=== PATIENT | female | born 1985 | race Asian ===

== ENCOUNTER 2017-12-15 14:02 | Inpatient (IN) | payer SELFPAY ==
[~2017-12-15] VITALS: Ht 172.7 cm; Wt 82.6 kg
[2017-12-17] MEDS ORDERED: LACTATED RINGERS 1,000 ML IV SCH (01:08)
[2017-12-17 01:30] VITALS: BP 115/71
[2017-12-17 01:57] LABS: BASOPHILS # (AUTO) 0.3 K/uL (0.00-0.22); EOSINOPHILS % (AUTO) 0.5 % (0.0-4.0); HEMATOCRIT 38.1 % (36-48); HEMOGLOBIN 12.8 g/dL (12.0-16.0); LYMPHOCYTES % (AUTO) 22.1 % (20.5-51.1); MEAN CORPUSCULAR HEMOGLOBIN 31 pg (27-31); MEAN CORPUSCULAR HGB CONC 34 g/dL (33-37); MEAN CORPUSCULAR VOLUME 92 fL (80-94); MONOCYTES # (AUTO) 0.8 K/uL (0.8-1.0); MONOCYTES % (AUTO) 8.9 % (1.7-9.3); NEUTROPHILS # (AUTO) 5.9 K/uL (1.8-7.7); NEUTROPHILS % (AUTO) 65.5 % (42.2-75.2); PLATELET COUNT (AUTO) 169 K/uL (140-450); RED BLOOD CELL COUNT(AUTO) 4.15 MIL/uL (4.20-5.40); RED CELL DISTRIBUTION WIDTH 12.7 % (11.6-13.7)
[2017-12-17 01:58] LABS: APPEARANCE,URINE SL CLOUDY (CLEAR); BILIRUBIN,URINE NEGATIVE (NEGATIVE); BLOOD, URINE NEGATIVE (NEGATIVE); COLOR,URINE YELLOW (YELLOW); LEUKOCYTE ESTERASE ,URINE 2+ (NEGATIVE); NITRITE, URINE NEGATIVE (NEGATIVE); PH,URINE 5.5 (5.0-9.0); UGLUCOSE NEGATIVE (NEGATIVE)
[2017-12-17] MEDS ORDERED: AMPICILLIN 2,000 MG in NACL 0.9% MINI-BAG PLUS 100 ML IV SCH (02:00)
[2017-12-17 02:34] LABS: RBC,URINE 0-5 (RARE) /HPF (0-5); WBC,URINE TOO MANY TO COUNT /HPF (0-5)
[2017-12-17] MEDS ORDERED: AMPICILLIN 2,000 MG VIAL ONE (02:40)
[2017-12-17] MEDS ORDERED: MISOPROSTOL 25 MCG TAB ONE ×4 (03:23→13:09)
[2017-12-17] MEDS: MISOPROSTOL 25 MCG TAB VG PRN ×2 (03:30→13:05)
[2017-12-17] MEDS ORDERED: AMPICILLIN 1,000 MG VIAL ONE ×5 (06:54→23:38)
[2017-12-17] MEDS: AMPICILLIN 1,000 MG in NACL 0.9% MINI-BAG PLUS 50 ML IV SCH ×5 (06:58→23:42)
--- NOTE | 2017-12-17 09:08 | NUR ---
PATIENT HAS BEEN SCREENED AND CATEGORIZED LOW NUTRITION RISK. PATIENT WILL BE SEEN WITHIN 7 DAYS OF ADMISSION. 12/23/[address]
[2017-12-17] MEDS ORDERED: OXYTOCIN 20 UNITS in LACTATED RINGERS 1,000 ML IV SCH (16:35)
[2017-12-17] MEDS ORDERED: BUPIVACAINE 0.125%/NS PREMIX 250 ML ONE (21:24)
[2017-12-18] MEDS ORDERED: AMPICILLIN 1,000 MG VIAL ONE ×2 (02:55→07:03)
[2017-12-18] MEDS: AMPICILLIN 1,000 MG in NACL 0.9% MINI-BAG PLUS 50 ML IV SCH ×2 (03:00→07:00)
[2017-12-18] MEDS ORDERED: OXYTOCIN 10 UNITS/ML VIAL ONE (10:58)
[2017-12-18] MEDS ORDERED: oxyCODONE/APAP 5/325 MG 1 TAB TAB PO PRN (11:15)
[2017-12-18] MEDS ORDERED: MEASLES, MUMPS, AND RUBELLA 1 VIAL SQVAC PRN (11:15)
[2017-12-18] MEDS ORDERED: HYDROcodone/APAP 5/325 MG 1 TAB TAB PO PRN (11:15)
[2017-12-18] MEDS ORDERED: OXYTOCIN 10 UNITS/ML VIAL IM PRN (11:15)
[2017-12-18] MEDS ORDERED: BENZOCAINE/MENTHOL 20%-0.5% 60 GM CAN TP PRN (11:15)
[2017-12-18] MEDS ORDERED: TEMAZEPAM 15 MG CAP PO PRN (11:15)
[2017-12-18] MEDS ORDERED: IBUPROFEN 800 MG TAB PO PRN (11:15)
[2017-12-18] MEDS ORDERED: METHYLERGONOVINE 0.2 MG/ML AMP IM PRN (11:15)
[2017-12-18 12:31] LABS: RAPID PLASMA REAGIN NON-REACTIVE (Non Reactiv)
[2017-12-18] MEDS ORDERED: AMMONIA AROMATIC 1 INHL INH ONE (15:03)
[2017-12-18] MEDS ORDERED: DOCUSATE SOD/SENNA 50/8.6 MG 1 TAB PO SCH (21:00)
[2017-12-19 07:34] LABS: HEMATOCRIT 29.8 % (36-48); HEMOGLOBIN 9.9 g/dL (12.0-16.0)
[2017-12-19] MEDS ORDERED: SHARK OIL/PHENYLEPHRINE 60 GM TUBE TP PRN (08:15)
[2017-12-19 21:38] VITALS: BP 98/67
== END 2017-12-19 21:55 | disposition home or self-care (01) | DRG 775 ==
LOC: MLD 12-17 00:25 → MFCC 12-18 15:20
PROVIDERS: ADMIT Obstetrics & Gynecology; ATTEND Obstetrics & Gynecology
PROC: 0W8NXZZ Division of Female Perineum, External Approach (ICD-10-PCS; principal; 2017-12-18)
PROC: 10E0XZZ Delivery of Products of Conception, External Approach (ICD-10-PCS; 2017-12-18)
PROC: 10907ZC Drainage of Amniotic Fluid, Therapeutic from Products of Conception, Via Natural or Artificial Opening (ICD-10-PCS; 2017-12-18)
PROC: 3E0R3BZ Introduction of Anesthetic Agent into Spinal Canal, Percutaneous Approach (ICD-10-PCS; 2017-12-18)
PROC: 00HU33Z Insertion of Infusion Device into Spinal Canal, Percutaneous Approach (ICD-10-PCS; 2017-12-18)
DX: O48.0 Post-term pregnancy (principal); O69.1XX0 Labor and delivery complicated by cord around neck, with compression, not applicable or unspecified; O99.824 Streptococcus B carrier state complicating childbirth; Z3A.40 40 weeks gestation of pregnancy; Z37.0 Single live birth; Z28.21 Immunization not carried out because of patient refusal
CPT/HCPCS: 36415; 59200; 81001; 85018; 85025; 86592; 86886; 86900; 86901; 87086; J0290; J0690; J2590; J3490; J7060; J7120